=== PATIENT | female | born 1985 | race Caucasian/White ===

== ENCOUNTER 2018-03-05 06:28 | Day surgery (SDC) | payer OTHER ==
[2018-03-04 12:10] LABS: BASOPHILS # (AUTO) 0.02 x10^3/uL (0-0.1); BASOPHILS % (AUTO) 0 % (0-1); EOSINOPHILS # (AUTO) 0.05 x10^3/uL (0-0.4); EOSINOPHILS % (AUTO) 1 % (1-7); LYMPHOCYTES # (AUTO) 1.89 x10^3/uL (1-3.4); LYMPHOCYTES % (AUTO) 24 % (22-44); MD NO; MEAN CORPUSCULAR HEMOGLOBIN 33.8 pg (27.0-34.8); MEAN CORPUSCULAR HGB CONC 33.9 g/dL (32.4-35.8); MEAN CORPUSCULAR VOLUME 99.8 fL (80-100); MEAN PLATELET VOLUME 7.8 fL (7.4-10.4); MONOCYTES # (AUTO) 0.38 x10^3/uL (0.2-0.8); MONOCYTES % (AUTO) 5 % (2-9); NEUTROPHILS # (AUTO) 5.51 x10^3/uL (1.8-6.8); NEUTROPHILS % (AUTO) 70 % (42-75); PLATELET COUNT 333 x10^3/uL (130-400); RED BLOOD COUNT 4.41 x10^6/uL (3.82-5.3); RED CELL DISTRIBUTION WIDTH 12.9 % (9.6-15.2)
[2018-03-04 12:23] LABS: ANION GAP 7 mmol/L (5-15); CALCIUM 8.9 mg/dL (8.5-10.1); CHLORIDE 108 mmol/L (98-107); CREATININE 0.83 mg/dL (0.55-1.02)
[2018-03-04 12:28] LABS: INTERNATIONAL NORMALIZED RATIO 1.02 (0.93-1.1); PROTHROMBIN TIME 10.8 Seconds (9.6-11.5)
[2018-03-04 12:31] LABS: MICROSCOPIC AUTO
[2018-03-04 12:38] LABS: CULTURE INDICATED? NO
[2018-03-04 17:06] LABS: HCG UR SG 1.034 (1.003-1.030)
[~2018-03-05] VITALS: Ht 170.2 cm; Wt 52.3 kg
[~2018-03-05 06:28] MED LIST: NONE PER PT
[2018-03-05] MEDS ORDERED: BUPIVACAINE 0.25% ONE (07:06)
[2018-03-05] MEDS ORDERED: BUPIVACAINE/PF 0.5% ONE (07:07)
[2018-03-05] MEDS ORDERED: BACITRACIN 50,000 UNIT ONE (07:07)
[2018-03-05] MEDS ORDERED: EPINEPHRINE 1 MG/ML, 1ML ONE (07:07)
[2018-03-05] MEDS ORDERED: THROMBIN 5,000 UNIT VIAL TP ONE (07:07)
[2018-03-05] MEDS ORDERED: MIDAZOLAM 1 MG/ML, 2ML ONE (09:22)
[2018-03-05] MEDS ORDERED: FENTANYL PF 250 MCG/5ML ONE (09:22)
[2018-03-05] MEDS ORDERED: BUPIVACAINE LIPOSOME/PF 20ML INFIL ONE (10:39)
[2018-03-05] MEDS ORDERED: EPHEDRINE 50 MG/ML, 1ML IM PRN (11:00)
[2018-03-05] MEDS ORDERED: LABETALOL 5MG/ML, 20ML IV PRN ×2 (11:00→13:30)
[2018-03-05] MEDS ORDERED: SCOPOLAMINE PATCH, 1.5MG PATCH.TD72 TD PRN (11:00)
[2018-03-05] MEDS ORDERED: GABAPENTIN 300 MG CAPSULE PO ONE (11:00)
[2018-03-05] MEDS ORDERED: PROMETHAZINE 25 MG/ML, 1ML IV PRN (11:00)
[2018-03-05] MEDS ORDERED: OXYcodone 5 MG/5 ML ORAL.SOL UDC PO PRN (11:00)
[2018-03-05] MEDS ORDERED: HYDROmorphone 2 MG/ML, 1ML IVPush PRN (11:00)
[2018-03-05] MEDS ORDERED: MEPERIDINE/PF 25MG/0.5ML IVPush PRN (11:00)
[2018-03-05] MEDS ORDERED: ACETAMINOPHEN 325 MG TABLET PO PRN (11:00)
[2018-03-05] MEDS ORDERED: ONDANSETRON 2MG/ML, 2ML IV PRN ×2 (11:00→13:30)
[2018-03-05] MEDS ORDERED: MIDAZOLAM 1 MG/ML, 2ML IV PRN (11:00)
[2018-03-05] MEDS ORDERED: DIAZEPAM 5 MG/ML, 2ML IVPush PRN (11:00)
[2018-03-05] MEDS ORDERED: ALBUTEROL/IPRATROPIUM 2.5MG/0.5MG, 3 ML NPPB PRN (11:00)
[2018-03-05] MEDS ORDERED: FENTANYL PF 100 MCG/2ML ONE ×2 (11:01→12:14)
[2018-03-05] MEDS ORDERED: GLYCOPYRROLATE 0.2MG/1ML, 5ML ONE (11:06)
[2018-03-05] MEDS ORDERED: CEFAZOLIN 1,000 MG ONE (11:06)
[2018-03-05] MEDS ORDERED: NEOSTIGMINE 1 MG/ML, 10ML ONE (11:06)
[2018-03-05] MEDS ORDERED: ROCURONIUM 10MG/ML,5ML ONE (11:06)
[2018-03-05] MEDS ORDERED: PROPOFOL 10 MG/ML, 20ML ONE (11:06)
[2018-03-05] MEDS ORDERED: DEXAMETHASONE 4 MG/ML, 1ML ONE (11:06)
[2018-03-05] MEDS ORDERED: ONDANSETRON 2MG/ML, 2ML ONE (11:06)
[2018-03-05] MEDS ORDERED: OXYcodone 5 MG/5 ML ORAL.SOL UDC ONE (12:01)
[2018-03-05] MEDS ORDERED: ACETAMINOPHEN 650 MG/20.3 ML UDC ONE (12:01)
[2018-03-05] MEDS: FENTANYL PF 100 MCG/2ML IV PRN ×2 (12:12→12:17)
[2018-03-05] MEDS ORDERED: DIPHENHYDRAMINE 50 MG/ML, 1ML IVPush PRN (13:30)
[2018-03-05] MEDS ORDERED: HYDROcodone/APAP 5/325 TABLET PO PRN (13:30)
[2018-03-05] MEDS ORDERED: DIPHENHYDRAMINE 50 MG CAPSULE PO PRN (13:30)
[2018-03-05] MEDS ORDERED: METHOCARBAMOL 1,000 MG in DEXTROSE 5% 100 ML IV ONE (13:30)
[2018-03-05] MEDS ORDERED: PROMETHAZINE 25 MG/ML, 1ML IM PRN (13:30)
[2018-03-05] MEDS ORDERED: DIPHENHYDRAMINE 50 MG/ML, 1ML IM PRN (13:30)
[2018-03-05] MEDS ORDERED: OXYcodone/APAP 5/325MG TABLET PO PRN (13:30)
[2018-03-05] MEDS ORDERED: CEFAZOLIN PMX 1GM/50ML 50 ML IVPB SCH (13:30)
[2018-03-05] MEDS ORDERED: morphine SULFATE 10 MG/ML, 1ML IV PRN (13:30)
[2018-03-05] MEDS ORDERED: CEFAZOLIN 1,000 MG in SODIUM CHLORIDE 0.9% 50 ML IVPB SCH (13:30)
[2018-03-05 14:00] VITALS: BP 112/64
[2018-03-05] MEDS ORDERED: OXYC-302 PO (17:29)
[2018-03-05] MEDS ORDERED: METH750T87 PO (17:30)
[2018-03-05] MEDS ORDERED: CEPH-368 PO (17:31)
[2018-03-05] MEDS ORDERED: METHOCARBAMOL 750 MG in DEXTROSE 5% 100 ML IV SCH (22:00)
[2018-03-07] MEDS ORDERED: METHOCARBAMOL 750 MG TABLET PO SCH (23:00)
== END 2018-03-05 18:51 | disposition home or self-care (01) ==
LOC: OUT 06:28 → 4NOR 07:05 → OUT 18:51
PROVIDERS: ATTEND Neurological Surgery
DX: M51.16 Intervertebral disc disorders with radiculopathy, lumbar region (principal); M48.061 Spinal stenosis, lumbar region without neurogenic claudication; Z79.01 Long term (current) use of anticoagulants; Z98.890 Other specified postprocedural states; Z88.0 Allergy status to penicillin
CPT/HCPCS: 36415; 63042; 63044; 71046; 72100; 80048; 81001; 81025; 85025; 85610; 85730; 93005; C9290; J0171; J0690; J1100; J2250; J2405; J2704; J2710; J2800; J3010; J3490; G0378